=== PATIENT | male | born 1995 | race Caucasian/White ===

== ENCOUNTER 2017-05-13 09:21 | Emergency (ER) | payer OTHER ==
[~2017-05-13] VITALS: Ht 172.7 cm; Wt 80.7 kg
[2017-05-13] MEDS ORDERED: NO HOME MEDICATION XX (09:28)
[2017-05-13] MEDS ORDERED: NORCO 5-325 TA1 EACH PO (10:38)
== END 2017-05-13 11:18 ==
LOC: EDMED 09:21
PROC: 2W3MXYZ Immobilization of Left Lower Extremity using Other Device (ICD-10-PCS; principal; 2017-05-13)
DX: S93.402A Sprain of unspecified ligament of left ankle, initial encounter (principal); X50.1XXA Overexertion from prolonged static or awkward postures, initial encounter; Y92.69 Other specified industrial and construction area as the place of occurrence of the external cause